=== PATIENT | female | born 2000 | race Caucasian/White ===

== ENCOUNTER 2022-02-05 14:48 | Emergency (ER) | payer OTHER, SELFPAY ==
[2022-02-05 14:55] VITALS: BP 144/66; PULSE 103; RESP 16; TEMP 36.6; O2SAT 100
--- NOTE | 2022-02-05 15:22 | ED.SKABFB ---
HPI - Skin/Abscess/Foreign Bdy General Chief complaint: Skin/Abscess/Foreign Body Stated complaint: right armpit pain Time Seen by Provider: 02/05/22 15:22 Source: patient Mode of arrival: ambulatory Limitations: no limitations History of Present Illness HPI narrative: 21 yo F presents with c/o boils to bilateral axilla for several years. Has seen PCP for this problem and given antibiotics orally. Has never seen dermatology. Reports tenderness to bilateral axilla. Itching also to R axilla. No fever/chills. All systems reviewed and negative except as noted above. Related Data Allergies Allergy/AdvReac Type Severity Reaction Status Date / Time No Known Allergies Allergy Verified 02/05/22 15:02 Review of Systems Review of Systems: CONSTITUTIONAL: Denies fever, chills, or sweats. EYES: Denies visual changes, redness, or discharge. ENT: Denies rhinorrhea, congestion, sore throat, or otalgia. CARDIOVASCULAR: Denies chest pain, palpitations, or edema. RESPIRATORY: Denies cough or dyspnea. GASTROINTESTINAL: Denies abdominal pain, nausea, vomiting, or diarrhea. GENITOURINARY: Denies dysuria or hematuria. SKIN: Denies rash or itching. Reports boils and tenderness to both axilla. MUSCULOSKELETAL: Denies back pain, joint pain, or myalgia. NEUROLOGIC: Denies headache, numbness, or weakness. PSYCHIATRIC: Denies anxiety or depression. All other systems reviewed are negative, except as documented in HPI. PMFSH Comments At time of signature, agree with nursing past medical, surgical, social and family history. There is no relevant family history pertinent to the presenting complaint. Exam Narrative: GENERAL: This is a well-nourished, well-developed patient, in no apparent distress. HEAD: normocephalic, atraumatic. EYES: PERRL. Sclera clear/white. Vision is grossly intact. EARS: External ears normal NOSE: External nose normal NECK: Neck supple, non-tender without lymphadenopathy, masses or thyromegaly. CARDIOVASCULAR: Regular rate and rhythm without murmurs, gallops, or rubs. RESPIRATORY: Clear to auscultation. Breath sounds equal bilaterally. No wheezes, rales, or rhonchi. SKIN: warm, Dry, intact, good texture and turgor. L axilla scar tissue, induration but no erythema or active boil/abscess. R axilla tender, scarred, indurated with some erythema, small boils. Also concerning for yeast infection. NEURO: awake, alert, and oriented to person, place and time. There were no obvious focal neurologic abnormalities. EXTREMITIES: No joint tenderness, effusion, or edema noted. Course Course Level of Care: Express Care Visit Vital Signs Vital signs: Vital Signs Temperature 36.6 C 02/05/22 14:55 Pulse Rate 103 H 02/05/22 14:55 Respiratory Rate 16 02/05/22 14:55 Blood Pressure 144/66 H 02/05/22 14:55 Pulse Oximetry 100 02/05/22 14:55 Oxygen Delivery Room Air 02/05/22 14:55 Temperature 36.6 C 02/05/22 14:55 Pulse Rate 103 H 02/05/22 14:55 Respiratory Rate 16 02/05/22 14:55 Blood Pressure 144/66 H 02/05/22 14:55 Pulse Oximetry 100 02/05/22 14:55 Oxygen Delivery Room Air 02/05/22 14:55 reviewed MDM - Skin/Abscess/Foreign Bdy MDM Narrative Medical decision making narrative: Patient is aware of diagnosis, understands and agrees to treatment plan. Anticipatory guidance given. Patient agrees to follow-up as directed and is aware of reasons to seek care at the emergency department. Portions of this record may have been created with voice recognition software Discharge Plan Discharge Clinical Impression: Axillary hidradenitis suppurativa, Yeast infection of the skin Patient Disposition: Home, Self-Care Condition: Stable Instructions: Antibiotic Form, Hidradenitis Suppurativa (ED) Additional Instructions: Use antibiotics as prescribed. Wash axilla with mild soap and water, such as Dove bar soap, nonscented, daily. Follow up with dermatology. [facility] Address:
== END 2022-02-05 15:42 | disposition home or self-care (01) ==
PROVIDERS: Emergency Provider Nurse Practitioner Family
DX: L73.2 Hidradenitis suppurativa (principal); B37.2 Candidiasis of skin and nail
CPT/HCPCS: 99203; G0463

== ENCOUNTER 2023-02-09 14:54 | Outpatient (CLI) | payer OTHER, SELFPAY ==
[2023-02-09 18:27] LABS: Hematocrit 41.1 % (37.0-47.0); Mean Corpuscular HGB Conc 31.6 g/dl (32-36); Mean Corpuscular Hemoglobin 24.2 pg (26-34); Mean Corpuscular Volume 76.4 fl (80-100); Mean Platelet Volume 10.2 fl (7.4-10.4); Platelet Count Result 413 k/mm3 (150-375); Red Blood Count 5.38 M/mm3 (4.2-5.4); Red Cell Distribution Width 15.5 % (11.5-14.5); White Blood Count 10.7 K/mm3 (4.5-10.0)
[2023-02-09 18:57] LABS: LDL Cholesterol Direct 125 mg/dL
[2023-02-09 19:01] LABS: T4 Thyroxine 9.22 ug/dL (5.53-11.0)
[2023-02-09 19:05] LABS: Alanine Aminotransferase 46 U/L (6-35); Albumin Level 4.6 g/dL (3.5-5.1); Alkaline Phosphatase 92 U/L (38-126); Anion Gap 10 mmol/L (8-16); Aspartate Amino Transferase 49 U/L (14-36); Bilirubin,Total 0.4 mg/dL (0.2-1.3); Blood Urea Nitrogen 12 mg/dL (7-17); Calcium 9.8 mg/dL (8.4-10.2); Carbon Dioxide 28 mmol/L (22-30); Chloride 99 mmol/L (98-107); Cholesterol 199 mg/dL (0-200); Estimated Glomerular Filt Rate > 60; Glucose 105 mg/dL (65-110); HDL Direct 33 mg/dL; Potassium 3.9 mmol/L (3.4-5.0); Sodium 137 mmol/L (137-145); Triglycerides 213 mg/dL (<150)
[2023-02-09 19:45] LABS: Hemoglobin A1C 5.5 % (<5.7)
[2023-02-12 06:29] LABS: Thyroid Peroxidase Antibodies 2 IU/mL (<9)
[2023-02-12 12:54] LABS: Insulin Level Total 87.8 uIU/mL (<=19.6)
[2023-02-14 10:11] LABS: Testosterone Free 11.1 pg/mL (0.1-6.4); Testosterone Total 57 ng/dL (2-45)
[2023-02-15 14:28] LABS: FSH 4.5 mIU/mL (***); LH 6.8 mIU/mL (***)
[2023-02-17 10:37] LABS: Estrogen 159 pg/mL
== END 2023-02-09 14:55 | disposition home or self-care (01) ==
LOC: ANHBWCLAB 14:56
PROVIDERS: PCP Nurse Practitioner Adult Health; Visit Provider Nurse Practitioner Adult Health
DX: E66.9 Obesity, unspecified (principal); Z13.9 Encounter for screening, unspecified; N92.6 Irregular menstruation, unspecified
CPT/HCPCS: 36415; 80053; 80061; 82672; 83001; 83002; 83036; 83525; 84402; 84403; 84436; 84443; 85027; 86376

== ENCOUNTER 2023-02-16 12:28 | Outpatient (CLI) | payer OTHER, SELFPAY ==
[2023-02-16 18:13] LABS: Basophils Absolute Auto 0.1 K/mm3 (0.0-0.1); Basophils Percent Auto 0.5 % (0.2-1.2); Eosinophils Absolute Auto 0.2 K/mm3 (0-0.3); Eosinophils Percent Auto 1.5 % (0-4.4); Hematocrit 41.8 % (37.0-47.0); Hemoglobin 12.8 g/dL (12.0-15.0); Immature Granulocyte Absolute 0.05 K/mm3 (0.00-0.031); Immature Granulocyte Percent A 0.5 % (0-0.5); Lymphocytes Absolute Auto 2.85 K/mm3 (0.9-3.2); Lymphocytes Percent Auto 26.9 % (18.3-44.2); Mean Corpuscular HGB Conc 30.6 g/dl (32-36); Mean Corpuscular Hemoglobin 24.1 pg (26-34); Mean Corpuscular Volume 78.6 fl (80-100); Mean Platelet Volume 10.5 fl (7.4-10.4); Monocytes Absolute Auto 0.8 K/mm3 (0.1-0.6); Monocytes Percent Auto 7.8 % (2.6-8.5); Neutrophils Absolute Auto 6.6 K/mm3 (1.3-6.7); Neutrophils Percent Auto 62.8 % (45.5-73.1); Platelet Count Result 373 k/mm3 (150-375); Red Blood Count 5.32 M/mm3 (4.2-5.4); Red Cell Distribution Width 15.4 % (11.5-14.5); White Blood Count 10.6 K/mm3 (4.5-10.0)
[2023-02-16 18:43] LABS: Iron 48 ug/dL (37-170)
[2023-02-16 18:53] LABS: Percent Iron Saturation 15 % (20-50)
[2023-02-16 18:58] LABS: Vitamin D 25 Hydroxy 22.5 ng/mL
[2023-02-16 19:43] LABS: Folic Acid 7.8 ng/mL (2.76->20)
== END 2023-02-16 12:29 | disposition home or self-care (01) ==
PROVIDERS: PCP Nurse Practitioner Adult Health; Visit Provider Nurse Practitioner Adult Health
DX: R71.8 Other abnormality of red blood cells (principal); R53.83 Other fatigue; D72.829 Elevated white blood cell count, unspecified; E55.9 Vitamin D deficiency, unspecified
CPT/HCPCS: 36415; 82306; 82607; 82728; 82746; 83540; 83550; 85025

== ENCOUNTER 2023-04-11 07:38 | Outpatient (CLI) | payer OTHER, SELFPAY ==
[2023-04-11 20:24] LABS: Free T4 Free Thyroxine 1.23 ng/mL (0.78-2.19)
[2023-04-14 05:06] LABS: Thyroid Peroxidase Antibodies 2 IU/mL (<9)
[2023-04-14 05:27] LABS: Prolactin 21.3 ng/mL (***)
[2023-04-14 14:46] LABS: DHEA-Sulfate 263 mcg/dL (51-321)
[2023-04-17 15:02] LABS: Z Score Female -0.6 SD (-2.0 - +2.0)
== END 2023-04-11 07:39 | disposition home or self-care (01) ==
PROVIDERS: PCP Nurse Practitioner Adult Health; Visit Provider Internal Medicine
DX: R79.89 Other specified abnormal findings of blood chemistry (principal); E16.1 Other hypoglycemia; R63.5 Abnormal weight gain
CPT/HCPCS: 36415; 82627; 83498; 84146; 84305; 84439; 84443; 86376

== ENCOUNTER 2023-05-23 14:27 | Outpatient (CLI) | payer OTHER, SELFPAY ==
--- NOTE | ~2023-05-23 | US_ITS ---
Pelvic ultrasound. Clinical History: Other specified abnormal findings of blood chemistry Technique: Realtime transabdominal and transvaginal scanning of the pelvis was performed. Color flow Doppler and Doppler spectral analysis were performed. Findings: The uterus is anteverted. The endometrial stripe has a thickness of 5 mm. No focal mass is identified. The right ovary measures 2.4 x 3.9 x 2.2 cm. No significant right ovarian or adnexal mass is seen. The left ovary measures 3.7 x 1.8 x 3.2 cm. No significant left ovarian or adnexal mass is seen. Vascular flow present in both ovaries on Doppler spectral analysis. There is trace free fluid in the cul de sac. Impression: Unremarkable pelvic ultrasound. Reviewed, dictated and finalized at [facility]. D[employer]PERATOR Impression: Unremarkable pelvic ultrasound.
== END 2023-05-23 14:28 | disposition home or self-care (01) ==
LOC: ANHIMG 14:28
PROVIDERS: PCP Nurse Practitioner Adult Health; Visit Provider Internal Medicine
DX: R79.89 Other specified abnormal findings of blood chemistry (principal); E16.1 Other hypoglycemia
CPT/HCPCS: 76856

== ENCOUNTER 2023-07-25 13:10 | Outpatient (CLI) | payer OTHER, SELFPAY ==
[2023-07-25 19:05] LABS: Iron 37 ug/dL (37-170)
[2023-07-25 19:06] LABS: Hematocrit 40.4 % (37.0-47.0); Hemoglobin 11.8 g/dL (12.0-15.0); Mean Corpuscular HGB Conc 29.2 g/dl (32-36); Mean Corpuscular Hemoglobin 23.2 pg (26-34); Mean Corpuscular Volume 79.5 fl (80-100); Mean Platelet Volume 10.3 fl (7.4-10.4); Platelet Count Result 431 k/mm3 (150-375); Red Blood Count 5.08 M/mm3 (4.2-5.4); Red Cell Distribution Width 13.7 % (11.5-14.5); White Blood Count 11.1 K/mm3 (4.5-10.0)
[2023-07-25 19:15] LABS: Percent Iron Saturation 12 % (20-50)
== END 2023-07-25 13:11 | disposition home or self-care (01) ==
PROVIDERS: PCP Nurse Practitioner Adult Health; Visit Provider Nurse Practitioner Adult Health
DX: D64.9 Anemia, unspecified (principal)
CPT/HCPCS: 36415; 82728; 83540; 83550; 85027

== ENCOUNTER 2023-08-25 08:24 | Outpatient (CLI) | payer OTHER, SELFPAY ==
[2023-08-25 19:24] LABS: Alanine Aminotransferase 17 U/L (6-35); Albumin Level 3.9 g/dL (3.5-5.1); Alkaline Phosphatase 101 U/L (38-126); Anion Gap 7 mmol/L (8-16); Aspartate Amino Transferase 36 U/L (14-36); Bilirubin,Total 0.3 mg/dL (0.2-1.3); Blood Urea Nitrogen 14 mg/dL (7-17); Calcium 9.6 mg/dL (8.4-10.2); Carbon Dioxide 28 mmol/L (22-30); Chloride 101 mmol/L (98-107); Estimated Glomerular Filt Rate > 60; Glucose 97 mg/dL (65-110); Potassium 4.1 mmol/L (3.4-5.0); Sodium 136 mmol/L (137-145)
[2023-08-25 19:47] LABS: Vitamin D 25 Hydroxy 38.5 ng/mL
[2023-08-25 20:01] LABS: Hemoglobin A1C 5.5 % (<5.7)
== END 2023-08-25 08:25 | disposition home or self-care (01) ==
LOC: ANHBWCLAB 08:25
PROVIDERS: PCP Nurse Practitioner Adult Health; Visit Provider Internal Medicine
DX: E55.9 Vitamin D deficiency, unspecified (principal); R63.5 Abnormal weight gain; E88.810 Metabolic syndrome
CPT/HCPCS: 36415; 80053; 82306; 83036

== ENCOUNTER 2024-01-16 07:59 | Outpatient (CLI) | payer OTHER, SELFPAY ==
[2024-01-16 19:34] LABS: Free T4 Free Thyroxine 1.18 ng/mL (0.78-2.19)
[2024-01-16 20:03] LABS: Cortisol Baseline 0.68 ug/dL
[2024-01-25 09:32] LABS: Dexamethasone 356 ng/dL
== END 2024-01-16 08:00 | disposition home or self-care (01) ==
LOC: ANHBWCLAB 08:01
PROVIDERS: PCP Nurse Practitioner Adult Health; Visit Provider Internal Medicine
DX: E28.2 Polycystic ovarian syndrome (principal); R63.5 Abnormal weight gain; E88.810 Metabolic syndrome
CPT/HCPCS: 36415; 80299; 82533; 84439; 84443

== ENCOUNTER 2024-01-23 13:17 | Outpatient (CLI) | payer OTHER, SELFPAY ==
[2024-01-23 19:47] LABS: Hematocrit 41.6 % (37.0-47.0); Hemoglobin 12.2 g/dL (12.0-15.0); Mean Corpuscular HGB Conc 29.3 g/dl (32-36); Mean Corpuscular Hemoglobin 22.7 pg (26-34); Mean Corpuscular Volume 77.5 fl (80-100); Mean Platelet Volume 10.1 fl (7.4-10.4); Platelet Count Result 431 k/mm3 (150-375); Red Blood Count 5.37 M/mm3 (4.2-5.4); White Blood Count 10.1 K/mm3 (4.5-10.0)
[2024-01-23 20:01] LABS: Alanine Aminotransferase 49 U/L (6-35); Albumin Level 4.5 g/dL (3.5-5.1); Alkaline Phosphatase 106 U/L (38-126); Anion Gap 12 mmol/L (4-12); Aspartate Amino Transferase 38 U/L (14-36); Bilirubin,Total 0.6 mg/dL (0.2-1.3); Blood Urea Nitrogen 10 mg/dL (7-17); Calcium 9.4 mg/dL (8.4-10.2); Carbon Dioxide 25 mmol/L (22-30); Chloride 100 mmol/L (98-107); Estimated Glomerular Filt Rate > 60; Glucose 104 mg/dL (65-110); Potassium 4.3 mmol/L (3.4-5.0); Sodium 137 mmol/L (137-145)
[2024-01-23 21:38] LABS: Iron 149 ug/dL (37-170)
[2024-01-23 21:47] LABS: Percent Iron Saturation 52 % (20-50)
[2024-01-23 21:57] LABS: Vitamin D 25 Hydroxy 28.9 ng/mL
== END 2024-01-23 13:18 | disposition home or self-care (01) ==
LOC: ANHBWCLAB 13:18
PROVIDERS: PCP Nurse Practitioner Adult Health; Visit Provider Nurse Practitioner Adult Health
DX: D64.9 Anemia, unspecified (principal); Z13.9 Encounter for screening, unspecified; E55.9 Vitamin D deficiency, unspecified; E28.2 Polycystic ovarian syndrome; R63.5 Abnormal weight gain; E88.810 Metabolic syndrome
CPT/HCPCS: 36415; 80053; 82306; 82728; 83036; 83540; 83550; 85027